=== PATIENT | female | born 1990 | race African-American/Black ===

== ENCOUNTER 2020-05-03 04:29 | Emergency (ER) | payer SELFPAY ==
[~2020-05-03] VITALS: Ht 165.1 cm; Wt 59.0 kg
[2020-05-03 05:00] VITALS: BP 109/72
[2020-05-03] MEDS ORDERED: FAMOTIDINE 20MG/2ML VIAL IV STA (06:08)
[2020-05-03] MEDS ORDERED: SODIUM CHLORIDE 0.9% 1,000 ML IV ONE (06:15)
== END 2020-05-03 05:40 | disposition left against medical advice (07) ==
LOC: ER 04:55
DX: R10.9 Unspecified abdominal pain (principal)
CPT/HCPCS: 81025; 93005; 99283; J7030

== ENCOUNTER 2024-08-13 16:38 | Emergency (ER) | payer OTHER ==
[~2024-08-13] VITALS: Ht 167.6 cm; Wt 57.0 kg
[2024-08-13 16:49] VITALS: O2SAT 98
[2024-08-13] MEDS: ACETAMINOPHEN 325MG TABLET PO ONE (17:59)
[2024-08-13 19:13] VITALS: BP 101/71; PULSE 71; RESP 17; TEMP 37.2; O2SAT 99
== END 2024-08-13 19:15 | disposition home or self-care (01) ==
LOC: ER 16:51
DX: S61.310A Laceration without foreign body of right index finger with damage to nail, initial encounter (principal); M79.644 Pain in right finger(s); W22.09XA Striking against other stationary object, initial encounter; Y93.89 Activity, other specified; Y92.89 Other specified places as the place of occurrence of the external cause; Y99.8 Other external cause status
CPT/HCPCS: 73130; 99283